=== PATIENT | female | born 2000 ===

== ENCOUNTER 2024-12-03 15:27 | Outpatient (REF) | payer BC, SELFPAY ==
--- NOTE | 2024-12-03 13:35 | PAPFT_PTH ---
PATIENT: Ricky Oakley LOC: [facility] U#:[id number] AGE/SX: 24/F ROOM: RE12/03/[address]: Siria Wray : 2000 BED: DIS: 12/03/2024 SPEC #: [id number] RECD: 12/04/24 13:14 STATUS: EVARISTO REQ #: [id number] YARA: 12/03/24 13:[address]: Siria Wray DEPT: [facility] Cytology RECD BY: Starr Hernandez ENTERED: 12/04/24 13:15 SP TYPE: PAPFT OTHR DR: Unknown,Unknown Tissues: 1 - CX/ENDOCX FOR PAP SMEARS Procedures: PAP THIN PREP/[facility] Screening HPV DNA PROBE Comments: [id number] (HPV 16 & 18/45) (CHLAMYDIA/GC)
[2024-12-05 12:42] LABS: Chlamydia Result Negative (Negative); GC Result Negative (Negative)
== END 2024-12-03 15:28 | disposition home or self-care (01) ==
LOC: NCHCN 15:27
PROVIDERS: Visit Provider Nurse Practitioner Family
DX: Z00.00 Encounter for general adult medical examination without abnormal findings (principal); Z12.4 Encounter for screening for malignant neoplasm of cervix
CPT/HCPCS: 87491; 87591; 88142; 87624